=== PATIENT | male | born 1945 | race Caucasian/White ===

== ENCOUNTER → 2018-07-27 | Outpatient (CLI) | payer MEDICARE, BC ==
[~2018-07-27] MED LIST: ALLOPURINOL300 MG PO; ASPIRIN 81M81 MG/TA2 PO; ASPRIN; AVAPRO TAB150 MG/TAB PO; CALCIUM PO; CELEBREX; CLARITIN; CORTEF 20MG TAB20 MG PO; CORTISONE ACETA25 MG PO; CORTISONE ACETATE PO; COUMADIN 2MG2 MG/TAB PO; COUMADIN 3MG3 MG/TAB PO; COZAAR100 MG PO; COZAAR50 MG PO; CRESTOR40 MG PO; DIFLUCAN 100MG100 MG PO; FOLIC ACID 40400 MCG PO; IRON325 M1 PO; LEVAQUIN; LEVAQUIN 250MG250 MG PO; LOPRESSOR 225 MG/TAB PO; LOPRESSOR 550 MG/TAB PO; NEXIUM 20MG CAP20 MG PO; NORCO 325 MG-51 TAB PO; PRENATAL1 TA3 PO; PRIL40 PO; PRILOSEC 20MG20 MG PO; SINGULAIR 110 MG/TAB PO; TOPROL XL 50MG50 MG PO; TYLENOL #21 TAB PO; ULTRAM 50MG TAB50 MG PO; VALTREX1 GM PO; VIT D; VITAMIN C500 MG PO; WARFARIN SODIUM4 MG PO; ZYLOPRIM 100MG100 MG PO; ZYRTEC 10MG10 MG PO
== END ==
LOC: COL.RAD 07:45
DX: Z01.812 Encounter for preprocedural laboratory examination (principal); I70.1 Atherosclerosis of renal artery; N28.89 Other specified disorders of kidney and ureter; R10.84 Generalized abdominal pain; R06.02 Shortness of breath; Z95.1 Presence of aortocoronary bypass graft
CPT/HCPCS: Q9967

== ENCOUNTER 2018-11-25 08:08 | Emergency (ER) | payer MEDICARE, BC ==
[~2018-11-25] VITALS: Ht 172.7 cm; Wt 97.7 kg
[2018-11-25 09:34] LABS: HEMATOCRIT 37.9 % (42.0-52.0); MEAN CELL VOLUME 90 fl (80.0-100.0); MEAN CORPUSCULAR HEMOGLOBIN 31 pg (27.0-31.0); MEAN CORPUSCULAR HGB CONC 34 g/dl (33.0-37.0); MEAN PLATELET VOLUME 10.1 fl (7.4-10.4); PLATELET COUNT 157 K/mm3 (130-400); REDCELL DISTRIBUTION WIDTH-CV 14.1 % (11.5-14.5)
[2018-11-25 09:46] LABS: ALBUMIN 3.8 gm/dL (3.5-5.0); BILIRUBIN,TOTAL 0.8 mg/dL (0.0-1.0); C-REACTIVE PROTEIN 0.7 mg/dL (0.0-0.9); CALCIUM 9.1 mg/dL (8.4-10.2); CREATININE, serum 1.64 (0.66-1.25); POTASSIUM 4.1 mmol/L (3.4-5.0); TOTAL PROTEIN 6.1 gm/dL (6.4-8.2)
[2018-11-25] MEDS ORDERED: NORCO 325 MG-51 TAB PO (10:41)
[2018-11-25 11:40] VITALS: BP 124/81; PULSE 94; TEMP 98.4
[2018-11-25 12:08] LABS: BAND 2 % (0-10); BASOPHIL 1 % (0-2); EOSINOPHIL 5 % (0-4); LYMPHOCYTE 15 % (20.0-51.0); NEUTROPHILS 65 % (42.0-75.2); PLATELET ESTIMATE NORMAL (NORMAL)
== END 2018-11-25 11:40 | disposition home or self-care (01) ==
LOC: COL.ER 08:08
PROVIDERS: Physician Assistant
DX: S86.811A Strain of other muscle(s) and tendon(s) at lower leg level, right leg, initial encounter (principal); I25.10 Atherosclerotic heart disease of native coronary artery without angina pectoris; I10 Essential (primary) hypertension; E11.9 Type 2 diabetes mellitus without complications; M10.9 Gout, unspecified; Z79.82 Long term (current) use of aspirin; Z95.5 Presence of coronary angioplasty implant and graft; Z79.52 Long term (current) use of systemic steroids; X50.0XXA Overexertion from strenuous movement or load, initial encounter
CPT/HCPCS: J3010

== ENCOUNTER → 2019-12-16 | Outpatient (CLI) | payer MEDICARE, BC | LOC: ZCOL.LAB 17:32 | DX: Z20.828 Contact with and (suspected) exposure to other viral communicable diseases (principal) ==

== ENCOUNTER → 2020-03-11 | Outpatient (CLI) | payer MEDICARE, BC | LOC: COL.RAD 11:08 | DX: M47.814 Spondylosis without myelopathy or radiculopathy, thoracic region (principal); I25.10 Atherosclerotic heart disease of native coronary artery without angina pectoris | CPT/HCPCS: Q9967 ==